=== PATIENT | male | born 1975 | race Caucasian/White ===

== ENCOUNTER 2025-05-02 13:26 | Inpatient (IN) | payer MEDICAID ==
[~2025-05-02] VITALS: Ht 175.3 cm; Wt 149.7 kg
[2025-05-02 13:29] VITALS: O2SAT 98
[2025-05-02 14:20] LABS: BASOPHILS % 0.8 % (0.0-2.0); EOSINOPHILS % 4.8 % (0.0-5.0); HEMATOCRIT. 39.8 % (42.0-52.0); HEMOGLOBIN. 13.6 g/dL (14.0-18.0); LYMPHOCYTES % 27.5 % (20.0-50.0); MEAN PLATELET VOLUME 7.8 fl (7.4-10.4); MONOCYTES % 8.5 % (2.0-8.0); NEUTROPHILS % 58.4 % (40.0-76.0); PLATELET 253 x1000/uL (130-400); RED BLOOD CELL COUNT 4.55 mill/uL (4.7-6.1); RED CELL DISTRIBUTION WIDTH 13.5 % (11.6-14.6)
[2025-05-02 14:33] LABS: CREATININE 1.0 mg/dL (0.6-1.3)
[2025-05-02] MEDS: MECLIZINE 25MG TABLET PO ONE (14:33)
[2025-05-02] MEDS: SODIUM CHLORIDE 0.9% 1,000 ML IV ONE (14:33)
[2025-05-02 14:34] LABS: UREA NITROGEN BLOOD 11 mg/dL (9-23)
[2025-05-02 14:35] LABS: ASPARTATE AMINOTRANSFERASE 45 IU/L (<34)
[2025-05-02 14:36] LABS: BILIRUBIN DIRECT 0.2 mg/dL (<=3.0); BILIRUBIN TOTAL 0.6 mg/dL (0.1-1.0); PROTEIN TOTAL 7.0 g/dL (6.0-8.3)
[2025-05-02 14:44] LABS: TROPONIN I HIGH SENSITIVITY 1149 ng/L (3.0-53)
[2025-05-02 16:37] LABS: TROPONIN I HIGH SENSITIVITY 3149 ng/L (3.0-53)
[2025-05-02] MEDS: ENOXAPARIN 120MG/0.8ML SYR SUBCUT ONE (17:45)
[2025-05-02 22:59] VITALS: BP 159/89; PULSE 72; RESP 22; TEMP 36.696
[2025-05-02 23:00] VITALS: BP 189/94; PULSE 75; RESP 25; O2SAT 98
[2025-05-02] MEDS: CLONIDINE 0.1MG TABLET PO PRN (23:18)
[2025-05-03] VITALS (12 sets, daily range): BP systolic 110–176; BP diastolic 57–93; PULSE 58–78; RESP 10–25; TEMP 36.4–37.2; O2SAT 93–100
[2025-05-03 03:15] LABS: TROPONIN I HIGH SENSITIVITY 11301 ng/L (3.0-53)
[2025-05-03 05:49] LABS: CREATININE 1.0 mg/dL (0.6-1.3); UREA NITROGEN BLOOD 12 mg/dL (9-23)
[2025-05-03 06:25] LABS: BASOPHILS % 0.7 % (0.0-2.0); EOSINOPHILS % 5.5 % (0.0-5.0); HEMATOCRIT. 39.5 % (42.0-52.0); HEMOGLOBIN. 13.4 g/dL (14.0-18.0); LYMPHOCYTES % 31.6 % (20.0-50.0); MEAN PLATELET VOLUME 8.0 fl (7.4-10.4); MONOCYTES % 8.9 % (2.0-8.0); NEUTROPHILS % 53.3 % (40.0-76.0); PLATELET 240 x1000/uL (130-400); RED BLOOD CELL COUNT 4.49 mill/uL (4.7-6.1); RED CELL DISTRIBUTION WIDTH 13.6 % (11.6-14.6)
[2025-05-03] MEDS: ASPIRIN 81MG TABLET PO SCH (08:28)
[2025-05-03] MEDS: ISOSORBIDE MONONITRATE 60MG TABLET SR 24HR PO SCH (08:28)
[2025-05-03] MEDS: METOPROLOL TARTRATE 25MG TABLET PO SCH (08:28)
[2025-05-03] MEDS: APIXABAN 5 MG TABLET PO SCH (08:28)
[2025-05-03] MEDS ORDERED: ENOXAPARIN 150MG/ML SYR SUBCUT SCH (11:00)
[2025-05-03] MEDS ORDERED: ONDANSETRON HCL 4MG/2ML INJ IV PRN (11:30)
[2025-05-03] MEDS: PANTOPRAZOLE SODIUM 40 MG/VIAL IV SCH (11:58)
[2025-05-03] MEDS: ACETAMINOPHEN 325MG TABLET PO PRN (11:59)
[2025-05-03] MEDS ORDERED: ACETAMINOPHEN 325MG TABLET PO PRN (12:00)
[2025-05-03 13:24] LABS: INR 1.0
[2025-05-03 13:36] LABS: TROPONIN I HIGH SENSITIVITY 10235 ng/L (3.0-53)
[2025-05-03 16:00] LABS: CLARITY URINE CLEAR (CLEAR); COLOR URINE YELLOW (YELLOW); GLUCOSE URINE NEGATIVE (NEGATIVE); KETONES URINE NEGATIVE (NEGATIVE); LEUKOCYTE ESTERASE URINE NEGATIVE (NEGATIVE); NITRITE URINE NEGATIVE (NEGATIVE); OCCULT BLOOD URINE NEGATIVE (NEGATIVE); PH URINE 6.5 (4.5-8.0); PROTEIN URINE NEGATIVE (NEGATIVE); SPECIFIC GRAVITY URINE 1.024 (1.005-1.030); UROBILINOGEN URINE 0.2 E.U./dL (0.2-1.0)
[2025-05-03 16:24] LABS: *AMPHETAMINES SCREEN URINE NEGATIVE (NEGATIVE); *BARBITURATES SCREEN URINE NEGATIVE (NEGATIVE); *BENZODIAZEPINES SCREEN URINE NEGATIVE (NEGATIVE); *COCAINE SCREEN URINE NEGATIVE (NEGATIVE); METHADONE URINE SCREEN NEGATIVE (NEGATIVE); OPIATES URINE SCREEN NEGATIVE (NEGATIVE); PHENCYCLIDINE URINE SCREEN NEGATIVE (NEGATIVE)
[2025-05-03 16:25] LABS: CANNABINOID URINE SCREEN PRESUMPTIVE POSITIVE (NEGATIVE); ECSTASY MDMA SCREEN URINE NEGATIVE (NEGATIVE)
[2025-05-03] MEDS: ATORVASTATIN CALCIUM 40MG TABLET PO SCH (21:45)
[2025-05-03] MEDS: ENOXAPARIN 150MG/ML SYR SUBCUT SCH (21:47)
[2025-05-04] VITALS (9 sets, daily range): BP systolic 94–164; BP diastolic 60–85; PULSE 56–73; RESP 16–26; TEMP 36.7–37.2; O2SAT 93–98
[2025-05-04] MEDS: HYDROCODONE/ACETAMINOPHEN 10/325MG TABLET PO PRN (02:52)
[2025-05-04 07:40] LABS: BASOPHILS % 0.7 % (0.0-2.0); EOSINOPHILS % 3.9 % (0.0-5.0); HEMATOCRIT. 37.3 % (42.0-52.0); HEMOGLOBIN. 12.8 g/dL (14.0-18.0); LYMPHOCYTES % 26.8 % (20.0-50.0); MEAN PLATELET VOLUME 8.9 fl (7.4-10.4); MONOCYTES % 8.5 % (2.0-8.0); NEUTROPHILS % 60.1 % (40.0-76.0); PLATELET 233 x1000/uL (130-400); RED BLOOD CELL COUNT 4.23 mill/uL (4.7-6.1); RED CELL DISTRIBUTION WIDTH 13.7 % (11.6-14.6)
[2025-05-04 07:54] LABS: CREATININE 1.0 mg/dL (0.6-1.3); UREA NITROGEN BLOOD 14 mg/dL (9-23)
[2025-05-04] MEDS ORDERED: VERAPAMIL HCL 2.5 MG/1 ML 2ML VIAL IV ONE (08:10)
[2025-05-04] MEDS ORDERED: EPINEPHRINE 0.1MG/ML (1:10,000) 10ML SYR ONE (08:10)
[2025-05-04] MEDS ORDERED: HEPARIN 1000 UNITS/ML 10ML ONE (08:10)
[2025-05-04] MEDS ORDERED: ATROPINE SULFATE 1MG/10ML SYR ONE (08:11)
[2025-05-04] MEDS ORDERED: LIDOCAINE HCL 1% 20ML VIAL ONE (08:11)
[2025-05-04] MEDS ORDERED: IODIXANOL 320MG/ML 100 ML BOTTLE IV ONE ×2 (08:11→09:35)
[2025-05-04] MEDS ORDERED: MIDAZOLAM HCL 2 MG/2 ML VIAL ONE (09:01)
[2025-05-04] MEDS ORDERED: FENTANYL CITRATE/PF 50MCG/ML 2ML VIAL ONE (09:01)
[2025-05-04] MEDS ORDERED: DIPHENHYDRAMINE 50MG/ML VIAL ONE (09:07)
[2025-05-04] MEDS ORDERED: ATROPINE SULFATE 1MG/10ML SYR IV PRN (10:00)
[2025-05-04] MEDS ORDERED: IOHEXOL-350 100 ML BOTTLE ONE (10:09)
[2025-05-04] MEDS ORDERED: ASPI-1497 MT (15:49)
[2025-05-04] MEDS ORDERED: ATOR40TA70 MT (15:49)
[2025-05-04] MEDS ORDERED: METO25TA6 MT (15:49)
== END 2025-05-04 17:47 | disposition home or self-care (01) | DRG 190 ==
LOC: ER 14:21 → 5EST 16:03 → EDBEDREQSVC 16:07 → EDBEDREQ 16:07 → EDBEDREQTM 16:07
PROVIDERS: ADMIT Internal Medicine; ATTEND Internal Medicine
PROC: 4A023N7 Measurement of Cardiac Sampling and Pressure, Left Heart, Percutaneous Approach (ICD-10-PCS; principal; 2025-05-04)
PROC: B215YZZ Fluoroscopy of Left Heart using Other Contrast (ICD-10-PCS; 2025-05-04)
PROC: B211YZZ Fluoroscopy of Multiple Coronary Arteries using Other Contrast (ICD-10-PCS; 2025-05-04)
DX: I21.4 Non-ST elevation (NSTEMI) myocardial infarction (principal); G90.89 Other disorders of autonomic nervous system; Z79.01 Long term (current) use of anticoagulants; E66.9 Obesity, unspecified; I10 Essential (primary) hypertension; N28.1 Cyst of kidney, acquired; I25.10 Atherosclerotic heart disease of native coronary artery without angina pectoris; F12.90 Cannabis use, unspecified, uncomplicated; Z86.711 Personal history of pulmonary embolism; Z68.42 Body mass index [BMI] 45.0-49.9, adult
CPT/HCPCS: 36415; 71045; 71275; 80048; 80076; 80305; 81003; 83036; 83880; 84484; 85025; 85379; 93005; 93306; 93458; 93970; 96360; 99291; A4606; C1769; C1887; C1893; J0461; J1200; J1644; J1650; J2003; J2250; J2470; J3010; J3490; J7030; J8597; Q9967